=== PATIENT | female | born 1960 | race Caucasian/White ===

== ENCOUNTER 2020-08-09 13:14 | Outpatient (CLI) | payer OTHER, SELFPAY | END 2020-08-09 13:15 | disposition home or self-care (01) | LOC: ANHCOVIDVC 13:14 | PROVIDERS: PCP Internal Medicine | DX: Z23 Encounter for immunization (principal) | CPT/HCPCS: 0001A; 91300 ==

== ENCOUNTER 2020-08-17 07:37 | Outpatient (CLI) | payer OTHER, SELFPAY ==
--- NOTE | ~2020-08-17 | US_ITS ---
EXAMINATION: US venous doppler [facility] DATE: 08/17/2020 08:09 INDICATION: Lower limb pain. TECHNIQUE: Grayscale ultrasound images without and with compression and Doppler ultrasound images of the bilateral lower extremity veins were obtained. COMPARISON: Ultrasound 05/04/2017 FINDINGS: The visualized portions of right common femoral vein, profunda (deep) femoral vein, femoral vein, pop liteal vein, peroneal veins, posterior tibial veins, and greater saphenous vein outflow are patent. The visualized portions of left common femoral vein, profunda femoral vein, femoral vein, popliteal v ein, peroneal veins, posterior tibial veins, and greater saphenous vein outflow are patent. IMPRESSION: 1. No deep venous thrombosis. Reviewed, dictated and finalized at location A.
== END 2020-08-17 07:38 | disposition home or self-care (01) ==
LOC: ANHIMG 07:41
PROVIDERS: PCP Internal Medicine; Visit Provider Internal Medicine
DX: Z86.718 Personal history of other venous thrombosis and embolism (principal)
CPT/HCPCS: 93970

== ENCOUNTER 2020-08-30 13:19 | Outpatient (CLI) | payer OTHER, SELFPAY | END 2020-08-30 13:20 | disposition home or self-care (01) | LOC: ANHCOVIDVC 13:19 | PROVIDERS: PCP Internal Medicine | DX: Z23 Encounter for immunization (principal) | CPT/HCPCS: 0002A; 91300 ==

== ENCOUNTER → 2020-12-30 06:49 | Outpatient (CLI) | payer OTHER, SELFPAY ==
[2020-12-30 18:53] LABS: SARS-CoV-2 RNA PCR Positive
== END ==
PROVIDERS: PCP Internal Medicine; Visit Provider Internal Medicine
DX: U07.1 COVID-19 (principal)
CPT/HCPCS: C9803; U0003; U0005

== ENCOUNTER 2022-01-31 14:20 | Outpatient (CLI) | payer OTHER, SELFPAY ==
--- NOTE | ~2022-01-31 | US_ITS ---
EXAMINATION: US art doppler w press LE BI DATE: 01/31/2022 15:29 INDICATION: Lower limb pain and swelling TECHNIQUE: Segmental pressures and plethysmographic and Doppler waveforms of the brachial and lower e xtremity arteries were obtained. COMPARISON: None. FINDINGS: Right and left brachial artery pressures of 113 mm Hg and 112 mm Hg, respectively, are concordant (no rmal difference <= 30 mmHg). The right and left high-thigh pressure indices were unable to be obtaine d due to inability to occlude the vessels at either upper thigh. The right ankle-brachial index (VINCENT) is 1.21 (normal >= 0.9-1). The right great toe-brachial index (T BI) is 0.77 (normal >= 0.6-0.8). The right lower extremity segmental pressure gradients are normal (n ormal gradients <= 20-30 mmHg between adjacent levels on the same leg or the same levels on the two l egs). Arterial waveforms are triphasic at the right common femoral, superficial femoral and posterior tibial arteries and biphasic at the right popliteal and dorsalis pedis arteries with brisk systolic upstrokes throughout. The left VINCENT is 1.22. The left TBI is 0.76. The left lower extremity segmental pressure gradients are normal. Arterial waveforms are triphasic at the left common femoral and superficial femoral arteries and biphasic at the popliteal, posterior tibial and dorsalis pedis arteries with brisk systolic upst rokes throughout. IMPRESSION: 1. Normal VINCENT's and TBI's bilaterally. No significant occlusive disease. Reviewed, dictated and finalized at location A.
== END 2022-01-31 14:21 | disposition home or self-care (01) ==
PROVIDERS: PCP Internal Medicine; Visit Provider Internal Medicine
DX: M79.89 Other specified soft tissue disorders (principal); M79.606 Pain in leg, unspecified
CPT/HCPCS: 93923

== ENCOUNTER 2022-03-31 15:07 | Emergency (ER) | payer OTHER, SELFPAY ==
[2022-03-31 15:17] VITALS: BP 116/71; PULSE 95; RESP 16; TEMP 37.1; O2SAT 100
--- NOTE | 2022-03-31 15:26 | ED.EYEPROB ---
HPI - Eye Problem General Chief complaint: Eye Problems Stated complaint: bump underneath right eyelid Time Seen by Provider: 03/31/22 15:20 Source: patient Mode of arrival: ambulatory Limitations: no limitations History of Present Illness HPI Narrative: Ms. So is a 61-year-old female patient presenting to clinic today with complaints of possible stye in the right eye. She reports that she has had this ongoing for approximately 1 week. Had contacted her PCP earlier this week and they gave her prescription for some gentamicin eyedrops. She states that these have not seemed to help. Has eyelid swelling and tenderness. Also reports some matting in her eyes this morning. She denies any fever chills. Related Data Home Medications Medication Instructions Recorded Confirmed omeprazole 20 mg capsule,delayed 20 mg PO DAILY 12/21/20 03/31/22 release Allergies Allergy/AdvReac Type Severity Reaction Status Date / Time cefuroxime Allergy Intermediate rectal Verified 03/31/22 15:15 bleeding Cephalosporins Allergy Intermediate STATES Verified 03/31/22 15:15 RECTAL BLEEDING ciprofloxacin Allergy Intermediate rectal Verified 03/31/22 15:15 beeding Sulfa (Sulfonamide Allergy Mild Rash Verified 03/31/22 15:15 Antibiotics) Review of Systems Review of Systems: Pertinent positives per HPI. Patient denies any fever, chills, rash, headache, visual changes, dizziness, cough, runny nose, sore throat, shortness of breath, chest pain, palpitations, nausea, vomiting, diarrhea, constipation, abdominal pain, or any urinary issues. PMFSH Past Medical History Medical History (Updated 03/31/22 @ 15:28 by Rick Peralta APRN) Abnormal Pap smear of cervix 03/12/13 (+) HPV CELLS ONLY -10/23/11 ASCUS;07/31/11 LGSIL; 04/05/11 LEEP LGSIL TENA 1; 05/02/15 ascus (+) hpv; 11/15/15 HGSIL (+) hpv -/ 12/08/2015 LEEP -HGSIL-TENA 2 Acne Blood clot in vein left groin HPV in female Mitral valve prolapse (~11/2016) Screening mammogram, encounter for Stroke Umbilical hernia Surgical History Surgical History H/O LEEP 04/05/11 LGSIL TENA I 12/08/15 HGSIL TENA II History of cholecystectomy (~1997) History of robot-assisted laparoscopic hysterectomy (11/01/16) RA TLH w/BSO--HGSIL TENA II surgical margins free of involvement , atrophic endometrium, adenomyosis Family History Family History Father Patient's father is Heart disease Mother Hypertension Sibling Hypertension Grandparent Cerebrovascular accident grandmother Diabetes mellitus grandfather Social History Social History (Updated 11/07/21 @ 16:50 by Nan Castro Katherin) Smoking status: Never smoker Second hand tobacco smoke exposure: No Alcohol intake: never Substance use: never Substance use type: does not use Additional living arrangements comments: Additional occupation/education comments: [employer] 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 There is no relevant family history pertinent to the patient complaint. Exam Narrative: General: Well-developed, well nourished, in no apparent distress Head: Normocephalic, atraumatic Eyes: Pupils equally round and reactive to light bilaterally, EOM intact, sclera and conjunctive clear, right upper eyelid swelling without drainage, tender to palpation without obvious stye or abscess. Ears: TMs intact and clear, ear canals clear, no drainage, grossly hearing normal. Nose: Nares patent, no discharge, no inflammation, no sinus tenderness. Mouth: Oropharynx without lesions or masses, good de
== END 2022-03-31 15:30 | disposition home or self-care (01) ==
PROVIDERS: Emergency Provider Nurse Practitioner Family; PCP Internal Medicine
DX: H01.9 Unspecified inflammation of eyelid (principal); I34.1 Nonrheumatic mitral (valve) prolapse; Z86.73 Personal history of transient ischemic attack (TIA), and cerebral infarction without residual deficits; Z86.2 Personal history of diseases of the blood and blood-forming organs and certain disorders involving the immune mechanism
CPT/HCPCS: 99213; G0463

== ENCOUNTER 2022-08-24 15:45 | Outpatient (CLI) | payer OTHER, SELFPAY ==
--- NOTE | ~2022-08-24 | XR_ITS ---
XR chest 2V DATE: 08/24/2022 16:01 INDICATION: Cough, congestion for one week TECHNIQUE: PA and lateral views COMPARISON: July 19, 2021 PA chest FINDINGS: Normal heart size. No hilar or mediastinal enlargement. No pulmonary infiltrate or consolid ation, pleural effusion or pulmonary vascular congestion or pneumothorax. Surgical clips, right upper quadrant, consistent with cholecystectomy. Mild dextroscoliosis of the thoracic spine IMPRESSION: No active cardiopulmonary disease Reviewed, dictated and finalized at location A.
== END 2022-08-24 15:46 | disposition home or self-care (01) ==
PROVIDERS: PCP Internal Medicine; Visit Provider Internal Medicine
DX: R05.9 Cough, unspecified (principal)
CPT/HCPCS: 71046

== ENCOUNTER 2022-11-17 10:17 | Outpatient (CLI) | payer OTHER, SELFPAY ==
[2022-11-17 10:33] LABS: Basophils Absolute Auto 0.1 K/mm3 (0.0-0.1); Basophils Percent Auto 0.7 % (0.2-1.2); Eosinophils Percent Auto 0.4 % (0-4.4); Hematocrit 43.7 % (37.0-47.0); Hemoglobin 14.1 g/dL (12.0-15.0); Immature Granulocyte Absolute 0.01 K/mm3 (0.00-0.031); Immature Granulocyte Percent A 0.1 % (0-0.5); Lymphocytes Absolute Auto 1.91 K/mm3 (0.9-3.2); Lymphocytes Percent Auto 26.2 % (18.3-44.2); Mean Corpuscular HGB Conc 32.3 g/dl (32-36); Mean Corpuscular Hemoglobin 30.1 pg (26-34); Mean Corpuscular Volume 93.2 fl (80-100); Mean Platelet Volume 9.8 fl (7.4-10.4); Monocytes Absolute Auto 0.4 K/mm3 (0.1-0.6); Monocytes Percent Auto 5.6 % (2.6-8.5); Neutrophils Absolute Auto 4.9 K/mm3 (1.3-6.7); Platelet Count Result 269 k/mm3 (150-375); Red Blood Count 4.69 M/mm3 (4.2-5.4); Red Cell Distribution Width 12.7 % (11.5-14.5); White Blood Count 7.3 K/mm3 (4.5-10.0)
[2022-11-17 10:56] LABS: Anion Gap 1 mmol/L (8-16); Blood Urea Nitrogen 10 mg/dL (7-17); Calcium 8.8 mg/dL (8.4-10.2); Carbon Dioxide 34 mmol/L (22-30); Chloride 105 mmol/L (98-107); Estimated Glomerular Filt Rate > 60; Glucose 94 mg/dL (65-110); Potassium 4.1 mmol/L (3.4-5.0); Sodium 140 mmol/L (137-145)
[2022-11-17 10:57] LABS: Alanine Aminotransferase 16 U/L (6-35); Albumin Level 4.3 g/dL (3.5-5.1); Alkaline Phosphatase 78 U/L (38-126); Aspartate Amino Transferase 22 U/L (14-36); Bilirubin,Total 0.6 mg/dL (0.2-1.3); Cholesterol 157 mg/dL (0-200); HDL Direct 47 mg/dL; Triglycerides 73 mg/dL (<150)
[2022-11-17 11:07] LABS: LDL Cholesterol Direct 86 mg/dL
== END 2022-11-17 10:18 | disposition home or self-care (01) ==
PROVIDERS: PCP Internal Medicine; Visit Provider Internal Medicine
DX: Z00.00 Encounter for general adult medical examination without abnormal findings (principal)
CPT/HCPCS: 36415; 80053; 80061; 84443; 85025

== ENCOUNTER 2023-05-24 16:20 | Emergency (ER) | payer OTHER, SELFPAY ==
--- NOTE | ~2023-05-24 | CT_ITS ---
EXAMINATION: CT abdomen pelvis wo con DATE: 05/24/2023 20:47 INDICATION: Lower abdominal pain for one week. Flank pain. TECHNIQUE: Computed tomography (CT) of the abdomen and pelvis was performed without intravenous contr ast. Automated exposure control and iterative reconstruction technique were employed. Exam dose: 569 .71 mGy-cm total exam DLP. COMPARISON: 11/14/2016 CT abdomen pelvis FINDINGS: Chronic stable posterior discoid scarring, left lower lobe, unchanged since 11/14/2016. No i nfiltrate or consolidation at the lung bases. Normal heart size. No pericardial or pleural effusion. Status post cholecystectomy. The liver is unremarkable. There is a calcified hepatic granuloma and th ere are multiple splenic calcified granulomas consistent with old granulomatous disease. No splenic m ass lesion or splenomegaly. No pancreatic mass lesion, calcification or pancreatic duct dilatation. No apparent abnormal bile digna t dilatation postcholecystectomy. Normal morphology of the adrenal glands. No renal mass lesion or urinary tract calculus or hydroureteronephrosis. Normal caliber of the abdominal aorta with mild atherosclerotic calcification. No intraperitoneal or retroperitoneal or pelvic mass lesion or adenopathy or ascites. Small sliding hiatal hernia. There is chronic somewhat thickened appearing gastric wall. The left upp er posterolateral gastric wall appears particularly prominent, possibly due to nondistention of the l umen and this area with approximation of the gastric an. Consider upper gastrointestinal series or endoscopy as clinically appropriate. Mild sigmoid colon diverticulosis; no evidence of diverticulitis. No bowel obstruction, bowel wall th ickening, pneumatosis or intraperitoneal free air. The appendix appears normal. Status post hysterectomy. The urinary bladder is unremarkable. Included skeletal structures are unremarkable; no suspicious osteolytic or osteoblastic lesions. IMPRESSION: Status post cholecystectomy Status post hysterectomy Small sliding hiatal hernia Nonspecific prominence of the gastric wall thickness; recommend clinical correlation and if appropria te upper gastrointestinal series or endoscopy Mild sigmoid diverticulosis; no evidence of diverticulitis Normal appendix Reviewed, dictated and finalized at Location A. Reviewed, dictated and finalized at location A. 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
--- NOTE | ~2023-05-24 | US_ITS ---
US venous doppler [facility] DATE: 05/24/2023 19:30 INDICATION: Leg pain. History of deep venous thrombosis. TECHNIQUE: Real-time and color flow imaging and Doppler analysis of the veins of the lower extremitie s COMPARISON: 08/17/2020 venous duplex examination of the lower extremities FINDINGS: There is spontaneous and phasic flow and normal augmentation and color flow signal and norm al compression of the deep veins of both lower extremities. The greater saphenous veins are patent. IMPRESSION: No evidence of deep venous thrombosis of the lower extremities Reviewed, dictated and finalized at Location A. Reviewed, dictated and finalized at location A. 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
[2023-05-24 16:21] VITALS: BP 126/66; PULSE 86; RESP 16; TEMP 36.7; O2SAT 100
--- NOTE | 2023-05-24 19:08 | ED.ABDPAIN ---
HPI - Abdominal Pain General Chief Complaint: Abdominal Pain Stated Complaint: Abd & Back Pain Time Seen by Provider: 05/24/23 18:55 History of Present Illness HPI narrative: 62-year-old female with history of IBS and prior history of DVT presenting to the emergency department for evaluation of 1 week of abdominal pain and some intermittent left lower leg pain. patient states past week ago she began developing some upper abdominal pain with associated cramping. Patient states over the course of the week the pain has changed and worsened today. Patient does describe some lower abdominal cramping. Patient denies any change in her bowel habits. Patient is also complaining of some left lower leg pain that feels similar to her prior DVT patient is currently not on blood thinners. Patient attempted follow-up with primary care physician and she was referred to the emergency department for further evaluation. Upon arrival to the emergency department patient is well appearing, in no distress and declined any medications for pain control. Related Data Allergies Allergy/AdvReac Type Severity Reaction Status Date / Time cefuroxime Allergy Intermediate rectal Verified 05/24/23 19:49 bleeding Cephalosporins Allergy Intermediate STATES Verified 05/24/23 19:49 RECTAL BLEEDING ciprofloxacin Allergy Intermediate rectal Verified 05/24/23 19:49 beeding Sulfa (Sulfonamide Allergy Mild Rash Verified 05/24/23 19:49 Antibiotics) Review of Systems Review of Systems: All systems reviewed & are unremarkable except as noted in HPI and below PMFSH Past Medical History Medical History Abnormal Pap smear of cervix 03/12/13 (+) HPV CELLS ONLY -10/23/11 ASCUS;07/31/11 LGSIL; 04/05/11 LEEP LGSIL TENA 1; 05/02/15 ascus (+) hpv; 11/15/15 HGSIL (+) hpv -/ 12/08/2015 LEEP -HGSIL-TENA 2 Acne Blood clot in vein left groin HPV in female Mitral valve prolapse (~11/2016) Screening mammogram, encounter for Stroke Umbilical hernia Surgical History Surgical History H/O LEEP 04/05/11 LGSIL TENA I 12/08/15 HGSIL TENA II History of cholecystectomy (~1997) History of robot-assisted laparoscopic hysterectomy (11/01/16) RA TLH w/BSO--HGSIL TENA II surgical margins free of involvement , atrophic endometrium, adenomyosis Family History Family History Father Patient's father is Heart disease Mother Hypertension Sibling Hypertension Grandparent Cerebrovascular accident grandmother Diabetes mellitus grandfather Social History Social History Smoking status: Never smoker Second hand tobacco smoke exposure: No Alcohol intake: never Substance use: never Substance use type: does not use Lack of Transportation: No Lack of Food: Never True Current Housing: I Have Housing Concerned About Future Housing: No Difficulty Paying Gas/Electric Bills: No Difficulty Paying for Meds: No Currently Unemployed: No Education: Trade/Vocational Certificate Difficulty w/ Childcare or Family Care: No Living arrangements: other Additional living arrangements comments: Occupation/Education: occupation 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 HEAD: normocephalic, atraumatic. EYES: PERRLA/EOMI, conjunctivae clear. NOSE: Normal no drainage EARS:TMS clear with good light reflex. THROAT: Pharynx clear, no exudate. NECK: Supple. No adenopathy, no masses. RESPIRATORY: Airway patent, respirations nonlabored. Clear
[2023-05-24 19:48] VITALS: BP 127/76; PULSE 86; O2SAT 99
[2023-05-24 20:09] LABS: Basophils Percent Auto 0.4 % (0.2-1.2); Eosinophils Absolute Auto 0.1 K/mm3 (0-0.3); Eosinophils Percent Auto 0.6 % (0-4.4); Hematocrit 41.3 % (37.0-47.0); Hemoglobin 13.5 g/dL (12.0-15.0); Immature Granulocyte Absolute 0.01 K/mm3 (0.00-0.031); Immature Granulocyte Percent A 0.1 % (0-0.5); Lymphocytes Absolute Auto 2.18 K/mm3 (0.9-3.2); Lymphocytes Percent Auto 28.2 % (18.3-44.2); Mean Corpuscular HGB Conc 32.7 g/dl (32-36); Mean Corpuscular Hemoglobin 30.3 pg (26-34); Mean Corpuscular Volume 92.6 fl (80-100); Mean Platelet Volume 10.3 fl (7.4-10.4); Monocytes Absolute Auto 0.4 K/mm3 (0.1-0.6); Monocytes Percent Auto 4.9 % (2.6-8.5); Neutrophils Absolute Auto 5.1 K/mm3 (1.3-6.7); Neutrophils Percent Auto 65.8 % (45.5-73.1); Platelet Count Result 250 k/mm3 (150-375); Red Blood Count 4.46 M/mm3 (4.2-5.4); Red Cell Distribution Width 12.5 % (11.5-14.5); White Blood Count 7.7 K/mm3 (4.5-10.0)
[2023-05-24 20:17] LABS: Prothrombin Time 13.1 Seconds (11.1-14.7)
[2023-05-24 20:18] LABS: Alanine Aminotransferase 15 U/L (6-35); Albumin Level 4.2 g/dL (3.5-5.1); Alkaline Phosphatase 81 U/L (38-126); Anion Gap 8 mmol/L (8-16); Aspartate Amino Transferase 24 U/L (14-36); Bilirubin,Total 0.4 mg/dL (0.2-1.3); Blood Urea Nitrogen 15 mg/dL (7-17); Calcium 9.2 mg/dL (8.4-10.2); Carbon Dioxide 29 mmol/L (22-30); Chloride 103 mmol/L (98-107); Estimated CRCL calculation 71 ml/min; Estimated Glomerular Filt Rate > 60; Glucose 102 mg/dL (65-110); Lipase 123 U/L (23-300); Partial Thromboplastin Time 30.4 SECONDS (22.3-36.8); Potassium 3.6 mmol/L (3.4-5.0); Sodium 140 mmol/L (137-145)
[2023-05-24 20:28] LABS: Appearance Urine Clear (Clear); Bacteria Urine None Seen /hpf; Bilirubin Urine Negative (Negative); Blood Urine Negative (Negative); Color Urine Yellow (Yellow); Glucose Urine UA Negative (Negative); Ketones Urine Negative (Negative); Leukocyte Esterase Ur Trace LEU/UL (Negative); Need Manual Microscopic Reviewed; Nitrate Urine Negative (Negative); Non Pathogenic Casts 0-2; Protein Urine Negative (Negative); RBC Urine 0-2 /hpf (0-2); Specific Grav Ur 1.016 (1.001-1.035); Squamous Epithelial Cell Urine None seen /hpf (Few); Urobilinogen Urine 0.2 mg/dL (<2.0); WBC Urine 0-5 /hpf; pH Urine 6.5 (5.0-9.0)
[2023-05-24 20:30] LABS: Add Urine Microscopic? YES
== END 2023-05-24 21:40 | disposition home or self-care (01) ==
PROVIDERS: Physician Assistant; Emergency Provider Emergency Medicine; PCP Internal Medicine
DX: K29.70 Gastritis, unspecified, without bleeding (principal); I34.1 Nonrheumatic mitral (valve) prolapse; Z86.718 Personal history of other venous thrombosis and embolism; Z90.49 Acquired absence of other specified parts of digestive tract; Z90.710 Acquired absence of both cervix and uterus; K44.9 Diaphragmatic hernia without obstruction or gangrene; K57.30 Diverticulosis of large intestine without perforation or abscess without bleeding
CPT/HCPCS: 36415; 74176; 80053; 81001; 83690; 85025; 85610; 85730; 93970; 99284

== ENCOUNTER 2023-11-23 07:22 | Outpatient (CLI) | payer OTHER, SELFPAY ==
[2023-11-23 08:04] LABS: Alanine Aminotransferase 16 U/L (6-35); Albumin Level 4.1 g/dL (3.5-5.1); Alkaline Phosphatase 63 U/L (38-126); Anion Gap 6 mmol/L (4-12); Aspartate Amino Transferase 21 U/L (14-36); Bilirubin,Total 0.8 mg/dL (0.2-1.3); Blood Urea Nitrogen 14 mg/dL (7-17); Calcium 8.9 mg/dL (8.4-10.2); Carbon Dioxide 30 mmol/L (22-30); Chloride 106 mmol/L (98-107); Cholesterol 172 mg/dL (0-200); Estimated Glomerular Filt Rate > 60; Glucose 91 mg/dL (65-110); HDL Direct 57 mg/dL; Potassium 4.3 mmol/L (3.4-5.0); Sodium 142 mmol/L (137-145); Triglycerides 73 mg/dL (<150)
[2023-11-23 08:15] LABS: LDL Cholesterol Direct 98 mg/dL
[2023-11-23 08:35] LABS: Vitamin D 25 Hydroxy 64.9 ng/mL
[2023-11-23 08:41] LABS: Basophils Absolute Auto 0.1 K/mm3 (0.0-0.1); Basophils Percent Auto 0.8 % (0.2-1.2); Eosinophils Absolute Auto 0.1 K/mm3 (0-0.3); Hematocrit 43.6 % (37.0-47.0); Hemoglobin 13.9 g/dL (12.0-15.0); Immature Granulocyte Absolute 0.01 K/mm3 (0.00-0.031); Immature Granulocyte Percent A 0.2 % (0-0.5); Lymphocytes Absolute Auto 1.79 K/mm3 (0.9-3.2); Lymphocytes Percent Auto 29.5 % (18.3-44.2); Mean Corpuscular HGB Conc 31.9 g/dl (32-36); Mean Corpuscular Hemoglobin 30.2 pg (26-34); Mean Corpuscular Volume 94.8 fl (80-100); Mean Platelet Volume 10.3 fl (7.4-10.4); Monocytes Absolute Auto 0.4 K/mm3 (0.1-0.6); Monocytes Percent Auto 6.1 % (2.6-8.5); Neutrophils Absolute Auto 3.8 K/mm3 (1.3-6.7); Neutrophils Percent Auto 62.4 % (45.5-73.1); Platelet Count Result 233 k/mm3 (150-375); Red Cell Distribution Width 12.5 % (11.5-14.5); White Blood Count 6.1 K/mm3 (4.5-10.0)
== END 2023-11-23 07:23 | disposition home or self-care (01) ==
PROVIDERS: PCP Internal Medicine; Visit Provider Clinical Nurse Specialist
DX: E55.9 Vitamin D deficiency, unspecified (principal); I63.9 Cerebral infarction, unspecified; Z86.718 Personal history of other venous thrombosis and embolism; Z86.73 Personal history of transient ischemic attack (TIA), and cerebral infarction without residual deficits; Z13.220 Encounter for screening for lipoid disorders; Z13.228 Encounter for screening for other metabolic disorders
CPT/HCPCS: 36415; 80053; 80061; 82306; 85025

== ENCOUNTER 2024-04-01 14:37 | Outpatient (CLI) | payer OTHER, SELFPAY ==
--- NOTE | ~2024-04-01 | XR_ITS ---
XR humerus RT Ordering provider: MONET Flores History: . fall 4 days ago mid shaft right humerus pain . Comparison: None. FINDINGS: BONES: No acute fracture or dislocation. JOINT SPACES: Normal. SOFT TISSUES: Normal. IMPRESSION: No acute osseous abnormality right humerus. Reviewed, dictated and finalized at location A.
--- NOTE | ~2024-04-01 | XR_ITS ---
XR shoulder RT min 2V Ordering provider: MONET Flores History: . fall 4 days ago mid shaft right humerus pain . Comparison: None. FINDINGS: BONES: No acute fracture or dislocation. JOINT SPACES: The acromioclavicular joint shows mild osteoarthritic changes.. The glenohumeral joint is normal. SOFT TISSUES: Normal. IMPRESSION: No acute osseous abnormality right shoulder. Reviewed, dictated and finalized at location A.
== END 2024-04-01 14:38 | disposition home or self-care (01) ==
LOC: GOSHIMG 14:38
PROVIDERS: PCP Internal Medicine; Visit Provider Clinical Nurse Specialist
DX: M25.511 Pain in right shoulder (principal); M79.621 Pain in right upper arm; W19.XXXA Unspecified fall, initial encounter
CPT/HCPCS: 73030; 73060

== ENCOUNTER 2024-12-18 11:25 | Outpatient (CLI) | payer OTHER, SELFPAY ==
--- NOTE | ~2024-12-18 | CT_ITS ---
Noncontrast CT scan of the right humerus CLINICAL HISTORY: Pain TECHNIQUE: Axial noncontrast imaging of the right humerus was performed. Sagittal and coronal reforma tted images were constructed. Dose reduction technique was used on this scan by utilizing automated e xposure control and iterative reconstruction technique. The dose-length product (DLP) was 818.67 mGy- cm. Findings: No acute fracture or dislocation seen. There is minimal AC joint degenerative change. Gleno humeral joint is intact. Elbow joint intact. No joint effusion evident. Musculature in the upper arm is unremarkable. No muscle atrophy evident. No soft tissue mass or fluid collection seen. IMPRESSION: No significant abnormality seen. Reviewed, dictated and finalized at location .
== END 2024-12-18 11:26 | disposition home or self-care (01) ==
LOC: MICIMG 11:25
PROVIDERS: PCP Internal Medicine; Visit Provider Clinical Nurse Specialist
DX: M79.601 Pain in right arm (principal); W19.XXXA Unspecified fall, initial encounter
CPT/HCPCS: 73200